=== PATIENT | female | born 1930 | race Caucasian/White ===

== ENCOUNTER → 2019-05-17 | Outpatient (CLI) | payer MEDICARE, BC ==
[~2019-05-17] MED LIST: Bupivacaine 0.5% 10 ML SDV INJECT ONE; Triamcinolone Acetonide 40 MG/ML 1 ML MDV IARTIC ONE
== END ==
LOC: FB.ORTHO 08:00
PROVIDERS: ATTEND Nurse Practitioner Family
DX: M25.511 Pain in right shoulder (principal); M25.512 Pain in left shoulder; G89.29 Other chronic pain
CPT/HCPCS: 20610; J3301; J3490

== ENCOUNTER 2019-06-15 16:25 | Emergency (ER) | payer MEDICARE, BC ==
--- NOTE | 2019-06-15 17:56 | EDM.PDOC ---
ED HPI GENERAL MEDICAL PROBLEM - General Chief Complaint: General Stated Complaint: FALL Time Seen by Provider: 06/15/19 16:45 Source of Information: Reports: Patient, Family History Limitations: Reports: No Limitations - History of Present Illness INITIAL COMMENTS - FREE TEXT/NARRATIVE: Patient presented to the ED from [facility] because of a head injury. He fell twice since yesterday,hit her head but there was no LOC. She said her legs gave out because of weakness which is nothing new. She is undergoing PT for generalized body weakness. Head Pain Score (Numeric/FACES): 4 - Related Data Allergies Allergy/AdvReac Type Severity Reaction Status Date / Time lisinopril Allergy Cough Verified 06/15/19 17:29 Home Meds: Home Meds Levothyroxine Sodium 137 mcg PO DAILY 07/21/15 [History] Metoprolol Tartrate [Lopressor] 1.5 tab PO BID 07/21/15 [History] busPIRone [Buspar] 10 mg PO TID 07/21/15 [History] traZODone 25 mg PO BEDTIME 07/21/15 [History] Ascorbate Calcium [Vitamin C] 500 mg PO DAILY 06/15/19 [History] Aspirin 81 mg PO DAILY 06/15/19 [History] Calcium Carbonate/Vitamin D3 [Calcium Carbonate/Vitamin D 600 MG-200 Unit] 1 tab PO DAILY 06/15/19 [History] Carboxymethylcellulose Sodium [Refresh Tears] 1 drop EYEBOTH DAILY 06/15/19 [ History] ClonazePAM [KlonoPIN] 0.5 mg PO BEDTIME 06/15/19 [History] Escitalopram [Lexapro] 20 mg PO DAILY 06/15/19 [History] Fexofenadine [Kayleigh] 180 mg PO DAILY 06/15/19 [History] Furosemide 60 mg PO BID 06/15/19 [History] Losartan/Hydrochlorothiazide [Losartan-HCTZ 50-12.5 MG] 1 tab PO DAILY 06/15/19 [History] Oxybutynin [Oxybutynin ER] 5 mg PO DAILY 06/15/19 [History] Phytonadione [Vitamin K] 100 mcg PO DAILY 06/15/19 [History] Potassium Chloride 30 meq PO DAILY 06/15/19 [History] Ranitidine HCl [Ranitidine] 150 mg PO BID 06/15/19 [History] Sennosides/Docusate Sodium [Senna Plus Tablet] 1 tab PO DAILY 06/15/19 [History] Vitamin B Complex 1 tab PO DAILY 06/15/19 [History] traMADol [Ultram] 50 mg PO BID PRN 06/15/19 [History] Past Medical History Cardiovascular History: Reports: Heart Valve Replacement, High Cholesterol, Hypertension, [place], SOB on Exertion Respiratory History: Reports: Asthma, Sleep Apnea Other Respiratory History: to have sleep apnea study done, denied resp problems but ht states seeing coding specialist home health poss asthma Gastrointestinal History: Reports: GERD, Hemorrhoids, Irritable Bowel Syndrome Genitourinary History: Reports: Urinary 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: Musculoskeletal History: Reports: Arthritis, Osteoarthritis Endocrine/Metabolic History: Reports: Hypothyroidism, Obesity/BMI 30+ - Past Surgical History GI Surgical History: Reports: Cholecystectomy, Colonoscopy, EGD, Other (See Below) Other GI Surgeries/Procedures: Bowel resection Female Surgical History: Reports: Hysterectomy Social & Family History - Tobacco Use Smoking Status *Q: Former Smoker Used Tobacco, but Quit: Yes Month/Year Tobacco Last Used: 1962 - Caffeine Use Caffeine Use: Reports: Coffee, Soda - Recreational Drug Use Recreational Drug Use: No ED ROS GENERAL - Review of Systems Review Of Systems: See Below Constitutional: Reports: No Symptoms HEENT: Reports: No Symptoms Respiratory: Reports: No Symptoms Cardiovascular: Reports: No Symptoms Endocrine: Reports: No Symptoms GI/Abdominal: Reports: No Symptoms : Reports: No Symptoms Musculoskeletal: Reports: No Symptoms Skin: Reports: Bruising Neurological: Reports: No Symptoms ED EXAM, GENERAL - Physical Exam Exam: See Below Exam Limited By: No Limitations General Appearance: Alert, WD/WN, No Apparent Distress Eye Exam: Bilateral Eye: PERRL Ears: Normal External Exam, Normal Canal, Hearing Grossly Normal, Normal TMs Nose: Normal Inspection, Normal Mucosa, No Blood Throat/Mouth: Normal Inspection, Normal Lips, Normal Teeth, Normal Gums, Normal Oropharynx Head: Atraumatic, Normocephalic Neck: Normal Inspection, Supple, Non-Tender, Full Range of Motion Respiratory/Chest: No Respiratory Distress, Lungs Clear, Normal Breath Sounds, No Accessory Muscle Use, Chest Non-Tender Back Exam: Normal Inspection, Full Range of Motion Extremities: Normal Inspection, Normal Range of Motion, Non-Tender, No Pedal Edema Neurological: Alert, Oriented, CN II-XII Intact, Normal Cognition, Normal Gait Course - Vital Signs Text/Narrative:: Head CT-neg - Orders/Labs/Meds Orders: Active Orders 24 hr Category Date Time Status Head wo Cont [CT] Stat Exams 06/15/19 16:37 Ordered Departure - Departure Time of Disposition: 17:55 Disposition: Home, Self-Care 01 Condition: Good Clinical Impression: Closed head injury, Fall - Discharge Information Instructions: Head Injury, Adult, [id number] Referrals: Devin Peralta PA-C [Primary Care Provider] - Forms: ED Department Discharge Additional Instructions: please read discharge instructions on closed head injury and falls follow up as needed Sepsis Event Note - Focused Exam Date Exam was Performed: 06/15/19 Time Exam was Performed: 17:57 - My Orders Last 24 Hours: My Active Orders 06/15/19 16:37 Head wo Cont [CT] Stat - Assessment/Plan Last 24 Hours: My Active Orders 06/15/19 16:37 Head wo Cont [CT] Stat
--- NOTE | 2019-06-15 18:06 | CT ---
INDICATION: Fell hitting back of head today, right side of head yesterday. CT HEAD WITHOUT CONTRAST: Spiral 3.75 mm axial sections were obtained through the brain without contrast with sagittal and coronal reconstructions and axial reconstructions revealing degenerative changes at the odontoatlantian joint. Calcifications are noted in the vertebral and internal carotid arteries. Paranasal sinuses and mastoid air cells appear to be fairly well aerated. No definite cranial abnormality was seen. No shift of midline structures was noted. Ventricles are only slightly prominent, compatible with the patient's age. Orbits appear to be intact. There are white matter changes, compatible with mild microvascular disease with multiple low-density abnormalities of small size in the caudate nuclei and basal ganglia, compatible with lacunar infarcts. No bleeding site or hematoma, or findings suspicious for an acute abnormality were identified. IMPRESSION: 1. No acute intracranial abnormality. 2. Microvascular disease and lacunar infarcts suggested. 3. Cerebrovascular disease. Total exam DLP was 1270.76 mGy-cm. Report was called to Nathaniel Lama MD at 1742 hours. [facility]
[2019-06-15 19:32] VITALS: BP 125/87; PULSE 85
== END 2019-06-15 18:18 | disposition home or self-care (01) ==
LOC: FB.ED 16:25
DX: S09.90XA Unspecified injury of head, initial encounter (principal); I10 Essential (primary) hypertension; I25.2 Old myocardial infarction; K21.9 Gastro-esophageal reflux disease without esophagitis; E03.9 Hypothyroidism, unspecified; E66.9 Obesity, unspecified; Z68.41 Body mass index [BMI] 40.0-44.9, adult; Z87.891 Personal history of nicotine dependence; Z88.8 Allergy status to other drugs, medicaments and biological substances; Z79.82 Long term (current) use of aspirin; Z79.890 Hormone replacement therapy; Z79.899 Other long term (current) drug therapy; Z95.2 Presence of prosthetic heart valve; W19.XXXA Unspecified fall, initial encounter
CPT/HCPCS: 70450; 99285-25